=== PATIENT | female | born 1990 ===

== ENCOUNTER 2018-03-03 11:21 | Emergency (ER) | payer MEDICAID ==
[2018-03-03 11:34] VITALS: BP 111/71; PULSE 65; RESP 16; TEMP 98.1
[2018-03-03 11:35] VITALS: BMI 27.4
[2018-03-03 11:39] VITALS: O2SAT 98
[2018-03-03] MEDS ORDERED: Sodium Chloride 0.9% 1,000 ML IV STA (11:50)
--- NOTE | 2018-03-03 11:56 | ED PDOC ---
HPI: General Adult Time Seen by Provider: 03/03/18 11:28 Chief Complaint (Nursing): Upper Extremity Problem/Injury Chief Complaint (Provider): Finger pain and dizziness History Per: Patient History/Exam Limitations: no limitations Onset/Duration Of Symptoms: Days () Current Symptoms Are (Timing): Still Present Additional Complaint(s): Pt. with dizziness like light-headed that happened x2 randomly and lasted 2 minutes. One time on and one time Monday. She suddenly gets the episode with palpitations. Feels like her anxiety attacks that she has had in the past. Symptoms go away on her own. No numbness, tingles. No headaches, chest pain, dyspnea, abd pain, nausea, vomit, leg pain, or hormones/drugs/etoh use. Took ativan on Mon as she had an anxiety attack. Pt. has no dizziness or palpitations currently. Pt. also with R hand ringer pain after helping her boss moving something. Pain on going for 1 month. Pt. did not take anything for it. Tried a splint with some relief. No back pain. Past Medical History Reviewed: Nursing Documentation, Vital Signs Vital Signs: Last Vital Signs Temp 98.1 F 03/03/18 11:33 Pulse 65 03/03/18 11:33 Resp 16 03/03/18 11:33 BP 111/71 03/03/18 11:33 Pulse Ox 98 03/03/18 11:59 - Medical History PMH: Anxiety, Depression - Surgical History Surgical History: No Surg Hx - Family History Family History: States: Unknown Family Hx - Living Arrangements Living Arrangements: With Family - Social History Alcohol: None - Allergies Allergies/Adverse Reactions: Allergies Allergy/AdvReac Type Severity Reaction Status Date / Time No Known Allergies Allergy Verified 03/03/18 11:37 Review of Systems ROS Statement: Except As Marked, All Systems Reviewed And Found Negative Constitutional: Positive for: Weakness (after the episode (not currently)) Cardiovascular: Positive for: Palpitations, Light Headedness Musculoskeletal: Positive for: Hand Pain Neurological: Positive for: Weakness, Dizziness Physical Exam - Reviewed Nursing Documentation Reviewed: Yes Vital Signs Reviewed: Yes - Physical Exam Appears: Positive for: Non-toxic, No Acute Distress Head Exam: Positive for: ATRAUMATIC, NORMAL INSPECTION, NORMOCEPHALIC Skin: Positive for: Normal Color, Warm, DRY Eye Exam: Positive for: EOMI, Normal appearance, PERRL ENT: Positive for: Normal ENT Inspection Neck: Positive for: Normal, Painless ROM, Supple Cardiovascular/Chest: Positive for: Regular Rate, Rhythm Respiratory: Positive for: CNT, Normal Breath Sounds Gastrointestinal/Abdominal: Positive for: Normal Exam, Soft. Negative for: Tenderness Back: Positive for: Normal Inspection. 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 Negative for: Motor/Sensory Deficits, Aphasia, Facial Droop - Laboratory Results Result Diagrams: 03/03/18 12:13 03/03/18 12:13 Interpretation Of Abn Labs: no acute - ECG ECG: Positive for: Interpreted By Me, Viewed By Me ECG Rhythm: Positive for: Normal QRS, Normal ST Segment, Sinus Rhythm O2 Sat by Pulse Oximetry: 98 Pulse Ox Interpretation: Normal - Radiology X-Ray: Interpreted by Me, Viewed By Me, Read By Radiologist (Dr. Yeung) X-Ray Interpretation: No Acute Disease - Progress ED Course And Treament: 1255: Stable. AAOx3. Pain free. Tolerated PO. Laughing with friends in room. No dizziness. Similar to anxiety in the past. Fu with pcp. Disposition - Clinical Impression Clinical Impression: Dizziness, Finger injury - Patient ED Disposition Is Patient to be Admitted: No Counseled Patient/Family Regarding: Studies Performed, Diagnosis, Need For Followup - Disposition Referrals: [facility] [Outside] - 03/05/18 Disposition: Routine/Home Disposition Time: 12:57 Condition: STABLE Additional Instructions: Return if not better in 3 days. Instructions: Dizziness, Nonvertigo, (DC), Common Finger Injuries Forms: [facility] ED School/Work Excuse
[2018-03-03 12:19] LABS: BASO % 0.3 % (0.0-2.0); EOS # 0.2 K/uL (0.0-0.7); EOS % 2.3 % (0.0-4.0); HEMOGLOBIN 13.5 g/dL (12.0-16.0); LYMPH # 2.4 K/uL (1.0-4.3); LYMPH % 32.2 % (20.0-40.0); MEAN CELL VOLUME 97.9 fl (81.0-99.0); MEAN CORPUSCULAR HEMOGLOBIN 33.4 pg (27.0-31.0); MEAN CORPUSCULAR HGB CONC 34.1 g/dL (33.0-37.0); MEAN PLATELET VOLUME 7.6 fl (7.2-11.7); MONO # 0.7 K/uL (0.0-0.8); MONO % 8.8 % (0.0-10.0); NEUT # 4.2 K/uL (1.8-7.0); NEUT % 56.4 % (50.0-75.0); RBC 4.05 Mil/uL (3.80-5.20); RED CELL DISTRIBUTION WIDTH 12.4 % (11.5-14.5); WHITE BLOOD COUNT 7.4 K/uL (4.8-10.8)
[2018-03-03 12:29] LABS: BLOOD UREA NITROGEN 19 mg/dl (7-17); CALCIUM 9.3 mg/dL (8.4-10.2); GFR AFRICAN-AMERICAN > 60; GFR NON-AFRICAN AMERICAN > 60
--- NOTE | 2018-03-03 12:57 | RAD ---
PROCEDURE: Right Hand Radiographs. HISTORY: pain finger 4th COMPARISON: None. FINDINGS: BONES: No acute fracture. JOINTS: Unremarkable. SOFT TISSUES: Normal. OTHER FINDINGS: None. IMPRESSION: No demonstrated fracture or dislocation.
--- NOTE | 2018-03-03 17:42 | CARD ---
APPROVED REPORT EKG Measurement Heart [id number] <Conclusion> Normal sinus rhythm Normal ECG
== END 2018-03-03 14:04 | disposition home or self-care (01) ==
LOC: H.ER 11:21
DX: R42 Dizziness and giddiness (principal); S69.91XA Unspecified injury of right wrist, hand and finger(s), initial encounter; Y92.89 Other specified places as the place of occurrence of the external cause

== ENCOUNTER 2018-07-28 22:09 | Emergency (ER) | payer MEDICAID ==
[2018-07-28 22:09] VITALS: BMI 27.4
[2018-07-28 22:16] VITALS: BP 103/66; PULSE 63; RESP 18; TEMP 97.9; O2SAT 100
[2018-07-28] MEDS ORDERED: Amoxicillin-Clav 875-125 mg Tab PO STA (22:26)
[2018-07-28] MEDS ORDERED: Tdap Vaccine 0.5 ml Vial (10-64 yrs) IM ONE ×2 (22:26→22:45)
--- NOTE | 2018-07-28 22:37 | ED PDOC ---
HPI: Skin/Bite Injury Chief Complaint (Provider): Cat Bite History Per: Patient History/Exam Limitations: no limitations Onset/Duration Of Symptoms: Hrs (since 5pm) Current Symptoms Are (Timing): Still Present Quality Of Symptoms: Painful Pain Scale Rating Of: 6 Additional Complaint(s): Patient is a 28 year old female who presents for evaluation of a cat bite to the right forearm. Patient reports that her girlfriend's cat is staying with her temporarily and that due to the change in environment, the cat has been on edge and bit her this afternoon around 5pm. Cat is up to date with vaccines and has been domesticated it's entire life. Patient reports localized pain to the bite site. 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 No other complaints. Patient is right hand dominant. PMD: [place] Tetanus: not UTD LMP: 07/12/18 <Yamilka Wolfe - Last Filed: 07/28/18 23:10> <Jordan Rubio - Last Filed: 07/30/18 06:41> Time Seen by Provider: 07/28/18 22:15 Chief Complaint (Nursing): Bite Past Medical History Reviewed: Historical Data, Nursing Documentation, Vital Signs Vital Signs: Last Vital Signs Temp 97.9 F 07/28/18 22:13 Pulse 63 07/28/18 22:13 Resp 18 07/28/18 22:13 BP 103/66 07/28/18 22:13 Pulse Ox 100 07/28/18 22:13 - Medical History PMH: Anxiety, Depression - Surgical History Other surgeries: gastic sleeve - Family History Family History: States: Unknown Family Hx - Immunization History Hx Tetanus Toxoid Vaccination: No (not up to date) <Yamilka Wolfe - Last Filed: 07/28/18 23:10> Vital Signs: Last Vital Signs Temp 97.9 F 07/28/18 22:13 Pulse 63 07/28/18 22:13 Resp 18 07/28/18 22:13 BP 103/66 07/28/18 22:13 Pulse Ox 100 07/28/18 23:10 <Jordan Rubio - Last Filed: 07/30/18 06:41> - Home Medications Home Medications: Ambulatory Orders Medication Instructions Recorded Amoxicillin/Clavulanate [Augmentin 1 tab PO BID #14 tab 07/28/18 875 MG-125 MG] RX: Bacitracin Ointment 1 applic TOP BID #1 tube 07/28/18 [Bacitracin] RX: Ibuprofen [Motrin Tab] 600 mg PO Q6 PRN #20 tab 07/28/18 - Allergies Allergies/Adverse Reactions: Allergies Allergy/AdvReac Type Severity Reaction Status Date / Time naproxen Allergy RASH Verified 07/28/18 22:13 Review of Systems ROS Statement: Except As Marked, All Systems Reviewed And Found Negative Skin: Positive for: Other (bite to right forearm) <Yamilka Wolfe - Last Filed: 07/28/18 23:10> Physical Exam - Reviewed Nursing Documentation Reviewed: Yes Vital Signs Reviewed: Yes - Physical Exam Appears: Positive for: Well, Non-toxic, No Acute Distress Head Exam: Positive for: ATRAUMATIC, NORMOCEPHALIC Skin: Positive for: Normal Color, Warm, Dry Eye Exam: Positive for: Normal appearance ENT: Positive for: Other (Airway patent, (-) stridor. Mucus membranes moist. ) Neck: Positive for: Painless ROM, Supple Cardiovascular/Chest: Positive for: Regular Rate, Rhythm Respiratory: Positive for: Normal Breath Sounds. Negative for: Respiratory Distress Extremity: Positive for: Normal ROM (of right upper extremity at all joints), Tenderness (localized to bite site), Capillary Refill (intact), Swelling (mild edema to bite sites), Other (multiple puncture wound and superficial abrasions to right forearm and distal upper arm. (-) surrounding erythema or cellulitis (- ) pus drainage. Sensation intact throughout, (-) distal NV deficit.). Negative for: Deformity Neurologic/Psych: Positive for: Alert, Oriented (x3), Gait (steady in ED). Negative for: Aphasia, Facial Droop <Brii Wolfebefrancia Marina - Last Filed: 07/28/18 23:10> - Laboratory Results Urine POC: Negative - ECG O2 Sat by Pulse Oximetry: 100 (RA) Pulse Ox Interpretation: Normal <Yamilka Wolfe - Last Filed: 07/28/18 23:10> Medical Decision Making Medical Decision Makin Initial Impression: Cat Bite to Right Arm Plan: -Augmentin PO -Tetanus IM -Ibuprofen PO -Re-evaluation. -Wounds irrigated with saline. Bacitracin bandages applied. Upreg: negative 2310 On re-evaluation, patient reports improvement of symptoms. On exam, patient remains AAOx3, in no acute distress. Lungs clear to auscultation, cardiac RRR, repeat neuro exam shows no focal findings. Vitals stable. Educated on wound care. Lab/Diagnostic results d/w the patient in great detail. Diagnosis of cat bite to arm d/w the patient. Return precautions given. Based on history, exam and diagnostic results, plan will be for outpatient follow up with PMD in 2 days for wound check. Patient instructed to follow-up with pmd / referral provided / the clinic in 1- 2 days without fail. Advised to take medication as prescribed. Return to the emergency room at any time for any new or worsening symptoms. Patient states she fully agrees with and understands discharge instructions. States that she agrees with the plan and disposition. Verbalized and repeated discharge instructions and plan. I have given the patient opportunity to ask any additional questions. <Yamilka Wolfe - Last Filed: 07/28/18 23:10> Disposition - Patient ED Disposition Is Patient to be Admitted: No Counseled Patient/Family Regarding: Studies Performed, Diagnosis, Need For Followup, Rx Given - Disposition Disposition: Routine/Home Disposition Time: 23:10 - POA Present On Arrival: None <Yamilka Wolfe - Last Filed: 07/28/18 23:10> <Jordan Rubio - Last Filed: 07/30/18 06:41> - Clinical Impression Clinical Impression: Cat bite, Arm pain, right, Visit for wound check - Disposition Referrals: Priscila Nava [employer]ODUCE TE[employer] MEMBER [Advanced Practice Nurse] - Condition: STABLE Additional Instructions: The emergency medical care you received today was directed at your acute symptoms. If you were prescribed any medication, please fill it and take as directed. It may take several days for your symptoms to resolve. Return to the Emergency Department if your symptoms worsen, do not improve, or if you have any other problems. Please contact your doctor in 2 days for re-evaluation and follow up / or call one of the physicians/clinics you have been referred to that are listed on the Patient Visit Information form that is included in your discharge packet. Bring any paperwork you were given at discharge with you along with any medications you are taking to your follow up visit. Our treatment cannot replace ongoing medical care by a primary care provider (PCP) outside of the emergency department. 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 <Jordan Rubio - Last Filed: 07/30/18 06:41>
[2018-07-28] MEDS ORDERED: Bacitracin 500 Units/gm Oint Foilpak UD TOP STA (22:43)
[2018-07-28] MEDS ORDERED: Amoxicillin-Clav 875-125 mg Tab PO ONE (22:45)
== END 2018-07-28 23:25 | disposition home or self-care (01) ==
LOC: H.ER 22:09
DX: S51.851A Open bite of right forearm, initial encounter (principal); W55.01XA Bitten by cat, initial encounter; Z23 Encounter for immunization; Z86.59 Personal history of other mental and behavioral disorders

== ENCOUNTER 2018-09-11 14:31 | Emergency (ER) | payer MEDICAID ==
[2018-09-11 14:31] VITALS: BMI 27.4
[2018-09-11 15:10] VITALS: BP 97/63; PULSE 79; RESP 18; TEMP 97.8; O2SAT 98
--- NOTE | 2018-09-11 16:07 | ED PDOC ---
HPI: Skin/Bite Injury Time Seen by Provider: 09/11/18 15:26 Chief Complaint (Nursing): Abnormal Skin Integrity Chief Complaint (Provider): Laceration, left middle History Per: Patient History/Exam Limitations: no limitations Onset/Duration Of Symptoms: Mins Current Symptoms Are (Timing): Still Present Quality Of Symptoms: Painful Severity: Moderate Pain Scale Rating Of: 7 Additional Complaint(s): 28 yo female with up to date tetanus presents for evaluation of laceration to the left distal middle finger. Pain 7/10. Pt reports irrigating finger under water at home. 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 Past Medical History Reviewed: Historical Data, Nursing Documentation, Vital Signs Vital Signs: Last Vital Signs Temp 97.8 F 09/11/18 15:07 Pulse 79 09/11/18 15:07 Resp 18 09/11/18 15:07 BP 97/63 L 09/11/18 15:07 Pulse Ox 98 09/11/18 15:07 - Medical History PMH: Anxiety, Depression - Family History Family History: States: Unknown Family Hx - Living Arrangements Living Arrangements: With Family - Social History Current smoker - smoking cessation education provided: No - Immunization History Hx Tetanus Toxoid Vaccination: No (not up to date) - Home Medications Home Medications: Ambulatory Orders Medication Instructions Recorded Amoxicillin/Clavulanate [Augmentin 1 tab PO BID #14 tab 07/28/18 875 MG-125 MG] Bacitracin Ointment [Bacitracin] 1 applic TOP BID #1 tube 07/28/18 Ibuprofen [Motrin Tab] 600 mg PO Q6 PRN #20 tab 07/28/18 Cephalexin [Keflex] 500 mg PO BID #14 capsule 09/11/18 - Allergies Allergies/Adverse Reactions: Allergies Allergy/AdvReac Type Severity Reaction Status Date / Time naproxen Allergy RASH Verified 07/28/18 22:13 Review of Systems ROS Statement: Except As Marked, All Systems Reviewed And Found Negative Constitutional: Negative for: Fever, Chills Skin: Positive for: Other Physical Exam - Reviewed Nursing Documentation Reviewed: Yes Vital Signs Reviewed: Yes - Physical Exam Appears: Positive for: Well, Non-toxic, No Acute Distress Head Exam: Positive for: ATRAUMATIC, NORMAL INSPECTION, NORMOCEPHALIC Skin: Positive for: Warm. Negative for: Normal Color (1 cm curvilinear laceration on distal 3rd left finger, wound remains closed with ROM.) Eye Exam: Positive for: Normal appearance ENT: Positive for: Normal ENT Inspection Neck: Positive for: Normal Cardiovascular/Chest: Negative for: Bradycardia, Tachycardia Respiratory: Negative for: Accessory Muscle Use, Respiratory Distress Back: Positive for: Normal Inspection Extremity: Positive for: Normal ROM, Capillary Refill. Negative for: Deformity, Swelling Neurologic/Psych: Positive for: Alert, Oriented - ECG O2 Sat by Pulse Oximetry: 98 Pulse Ox Interpretation: Normal Medical Decision Making Medical Decision Making: Wound irrigated, antibiotic ointment and dressing applied. Disposition - Clinical Impression Clinical Impression: Finger laceration - Patient ED Disposition Is Patient to be Admitted: No - Disposition Disposition: Routine/Home Disposition Time: 16:09 Condition: GOOD Prescriptions: Cephalexin [Keflex] 500 mg PO BID #14 capsule Instructions: Laceration Repair Forms: [facility] (Gambian), [facility] ED School/Work Excuse
== END 2018-09-11 16:14 | disposition home or self-care (01) ==
LOC: H.ER 14:31
DX: S61.213A Laceration without foreign body of left middle finger without damage to nail, initial encounter (principal); W26.0XXA Contact with knife, initial encounter; Y92.89 Other specified places as the place of occurrence of the external cause

== ENCOUNTER 2018-11-26 12:01 | Emergency (ER) | payer MEDICAID ==
[2018-11-26 12:19] VITALS: BMI 29.8
[2018-11-26 12:21] VITALS: O2SAT 100
[2018-11-26] MEDS ORDERED: Oxycodone/Acetaminophen 5/325 mg Tab PO STA (12:33)
--- NOTE | 2018-11-26 13:10 | ED PDOC ---
HPI: Back Time Seen by Provider: 11/26/18 12:25 Chief Complaint (Nursing): Back Pain Chief Complaint (Provider): Back Pain History Per: Patient History/Exam Limitations: no limitations Onset/Duration Of Symptoms: Hrs (today morning) Current Symptoms Are (Timing): Still Present Additional Complaint(s): 28 year old female with a past medical history of depression and anxiety, who presents to the emergency department complaining of left sided lower back pain that radiates to left hip since the morning. She denies any heavy lifting, weakness, paraesthesia, weakness, fever, nausea, or vomiting. PMD: Carlos Benson Past Medical History Reviewed: Historical Data, Nursing Documentation Vital Signs: Last Vital Signs Temp 97.7 F 11/26/18 12:19 Pulse 68 11/26/18 12:19 Resp 17 11/26/18 12:19 BP 114/66 11/26/18 12:19 Pulse Ox 100 11/26/18 12:19 - Medical History PMH: Anxiety, Depression - Surgical History Surgical History: No Surg Hx - Family History Family History: States: Unknown Family Hx - Immunization History Hx Tetanus Toxoid Vaccination: No (not up to date) - Home Medications Home Medications: Ambulatory Orders Medication Instructions Recorded Amoxicillin/Clavulanate [Augmentin 1 tab PO BID #14 tab 07/28/18 875 MG-125 MG] Bacitracin Ointment [Bacitracin] 1 applic TOP BID #1 tube 07/28/18 Ibuprofen [Motrin Tab] 600 mg PO Q6 PRN #20 tab 07/28/18 Cephalexin [Keflex] 500 mg PO BID #14 capsule 09/11/18 Cyclobenzaprine [Cyclobenzaprine 10 mg PO TID #10 tab 11/26/18 HCl] Methylprednisolone [Medrol Dose 4 mg PO DAILY #21 tab 11/26/18 Pack (21 tabs)] - Allergies Allergies/Adverse Reactions: Allergies Allergy/AdvReac Type Severity Reaction Status Date / Time naproxen Allergy RASH Verified 11/26/18 12:19 Review of Systems ROS Statement: Except As Marked, All Systems Reviewed And Found Negative Gastrointestinal: Negative for: Nausea, Vomiting Genitourinary Female: Negative for: Dysuria, Frequency, Incontinence, Hematuria Musculoskeletal: Positive for: Back Pain (left sided ), Other (left hip pain) Neurological: Negative for: Weakness, Other (paresthesia) Physical Exam - Reviewed Nursing Documentation Reviewed: Yes Vital Signs Reviewed: Yes - Physical Exam Appears: Positive for: Non-toxic, No Acute Distress Head Exam: Positive for: ATRAUMATIC, NORMOCEPHALIC Skin: Positive for: Normal Color, Warm, Dry Eye Exam: Positive for: Normal appearance, EOMI, PERRL ENT: Positive for: Normal ENT Inspection Neck: Positive for: Normal, Painless ROM, Supple Cardiovascular/Chest: Positive for: Regular Rate, Rhythm. Negative for: Murmur Respiratory: Positive for: Normal Breath Sounds. Negative for: Respiratory Distress Gastrointestinal/Abdominal: Positive for: Normal Exam, Soft. Negative for: Tenderness Back: Positive for: Other (left paralumbar tenderness and spasm). Negative for: Vertebral Tenderness Extremity: Positive for: Other (pain on left sided straight leg raise 30 degrees) Neurologic/Psych: Positive for: Alert, Oriented. Negative for: Motor/Sensory Deficits - ECG O2 Sat by Pulse Oximetry: 100 (RA) Pulse Ox Interpretation: Normal - Progress Re-evaluation Time: 14:58 Condition: Improved (Back pain improved able to ambulate) Medical Decision Making Medical Decision Makin Impression: Most likely musculoskeletal pain Plan: will obtain urine to rule out infection vs. kidney stone. Will treat with Percocet because patient is allergic to incense --ED urine dipstick --Oxycodone 1 tab PO [Percocet 5/325 mg tab] Scribe Attestation: Documented by Mitch Ho, acting as a scribe for Prem Colón MD. Provider Scribe Attestation: All medical record entries made by the Scribe were at my direction and personally dictated by me. I have reviewed the chart and agree that the record accurately reflects my personal performance of the history, physical exam, medical decision making, and the department course for this patient. I have also personally directed, reviewed, and agree with the discharge instructions and disposition. Disposition - Clinical Impression Clinical Impression: Low back pain - Patient ED Disposition Is Patient to be Admitted: No Counseled Patient/Family Regarding: Diagnosis, Need For Followup, Rx Given - Disposition Referrals: Mahesh Lowe III, MD [Staff Provider] - Disposition: Routine/Home Disposition Time: 14:58 Condition: FAIR Prescriptions: Cyclobenzaprine [Cyclobenzaprine HCl] 10 mg PO TID #10 tab Methylprednisolone [Medrol Dose Pack (21 tabs)] 4 mg PO DAILY #21 tab Instructions: Low Back Pain (DC) Forms: [facility] (Jamaican)
[2018-11-26] MEDS ORDERED: Oxycodone/Acetaminophen 5/325 mg Tab ONE (13:28)
[2018-11-26 15:46] VITALS: BP 105/61; PULSE 82; RESP 18; TEMP 98.6
== END 2018-11-26 15:52 | disposition home or self-care (01) ==
LOC: H.ER 12:01
DX: M54.5 Low back pain (principal); Z86.59 Personal history of other mental and behavioral disorders

== ENCOUNTER 2019-02-27 13:51 | Emergency (ER) | payer MEDICAID ==
[2019-02-27 13:51] VITALS: BMI 29.8
[2019-02-27 14:27] VITALS: PULSE 70; O2SAT 100
--- NOTE | 2019-02-27 14:58 | ED PDOC ---
HPI: Back Time Seen by Provider: 02/27/19 14:31 Chief Complaint (Nursing): Back Pain Chief Complaint (Provider): Back Pain History Per: Patient History/Exam Limitations: no limitations Quality Of Discomfort: "Pain" Previous Symptoms: Chronic Pain Additional Complaint(s): 28 year old female presents to the ED for evaluation of lower back pain. Patient reports on Monday, she bent over to flower picker an object and "threw her back out". Since then, she has had difficulty walking, prompting a visit her PMD on Monday who provided an Rx for Flexeril 5mg which she last took at 11:30AM. She has an outpatient CT of the lumbar spine scheduled later this week but she could not wait until the appointment due to worsening pain. Also reports she has a history of chronic low back pain in the past but the pain has never been this severe. Otherwise, patient denies trauma, falls, numbness, weakness, saddle anesthesia, abdominal pain, nausea, vomiting, diarrhea, urinary symptoms, chest pain, shortness of breath or incontinence. No other complaints or associated symptoms. LMP: last week PMD: Elijah RAMSAY Past Medical History Reviewed: Historical Data, Nursing Documentation, Vital Signs Vital Signs: Last Vital Signs Temp 98.3 F 02/27/19 14:25 Pulse 70 02/27/19 14:25 Resp 17 02/27/19 14:25 BP 112/64 02/27/19 14:25 Pulse Ox 100 02/27/19 14:25 - Medical History PMH: Anxiety, Back Problems (chronic ), Depression - Surgical History Other surgeries: gastric sleeve - Family History Family History: States: Unknown Family Hx - Home Medications Home Medications: Ambulatory Orders Medication Instructions Recorded Amoxicillin/Clavulanate [Augmentin 1 tab PO BID #14 tab 07/28/18 875 MG-125 MG] Bacitracin Ointment [Bacitracin] 1 applic TOP BID #1 tube 07/28/18 Ibuprofen [Motrin Tab] 600 mg PO Q6 PRN #20 tab 07/28/18 Cephalexin [Keflex] 500 mg PO BID #14 capsule 09/11/18 Cyclobenzaprine [Cyclobenzaprine 10 mg PO TID #10 tab 11/26/18 HCl] Methylprednisolone [Medrol Dose 4 mg PO DAILY #21 tab 11/26/18 Pack (21 tabs)] Acetaminophen [Acetaminophen 8 650 mg PO Q8 PRN #21 tablet.er 02/27/19 Hour] Ibuprofen [Motrin Tab] 800 mg PO Q8 PRN #21 tab 02/27/19 - Allergies Allergies/Adverse Reactions: Allergies Allergy/AdvReac Type Severity Reaction Status Date / Time naproxen Allergy RASH Verified 02/27/19 14:27 Review of Systems ROS Statement: Except As Marked, All Systems Reviewed And Found Negative Constitutional: Negative for: Fever Cardiovascular: Negative for: Chest Pain Respiratory: Negative for: Shortness of Breath Gastrointestinal: Negative for: Nausea, Vomiting, Abdominal Pain, Diarrhea Genitourinary Female: Negative for: Dysuria, Frequency, Incontinence Musculoskeletal: Positive for: Back Pain Neurological: Negative for: Weakness, Numbness, Other (saddle anesthesia ) Physical Exam - Reviewed Nursing Documentation Reviewed: Yes Vital Signs Reviewed: Yes - Physical Exam Comments: GENERAL APPEARANCE: Patient is awake, alert, oriented x 3, in mild painful distress. Uncomfortable appearing. SKIN: Warm, dry; (-) cyanosis. EYES: (-) conjunctival injection ENMT: Mucous membranes moist. Airway patent, (-) stridor. NECK: Supple, FROM CHEST AND RESPIRATORY: (-) rales, (-) rhonchi, (-) wheezes; breath sounds equal bilaterally. Respirations even and nonlabored. HEART AND CARDIOVASCULAR: (-) irregularity ABDOMEN AND GI: Soft; (-) tenderness (-) CVA tenderness (-) distention BACK: (+) midline lumbar tenderness and left paralumbar tenderness (-) deformity EXTREMITIES: (-) deformity. Distal pulses good bilaterally. NEURO AND PSYCH: Mental status as above. Intact sensation bilaterally; normal strength in extension of the knees, plantar and dorsiflexion of the toes. Gait: assisted with crutch. Speech: clear. (-) facial asymmetry - Laboratory Results Urine POC: Negative - ECG O2 Sat by Pulse Oximetry: 100 (RA) Pulse Ox Interpretation: Normal Medical Decision Making Medical Decision Making: Time: 1440 Impression: 28yo female with acute on chronic back pain Plan: --Lumbar spine w/o contrast CT --ED urine --Ultram 50mg PO (not driving home) --Valium 5mg PO --U/A --Re-evaluation 1620 PROCEDURE: CT Lumbar Spine without contrast HISTORY: sent by PMD COMPARISON: None available. TECHNIQUE: Axial computed tomography images were obtained of the lumbar spine without the use of intravenous contrast. Coronal and sagittal reformatted images were created and reviewed. Radiation dose: Total exam DLP = 923.91 mGy-cm. This CT exam was performed using one or more of the following dose reduction techniques: Automated exposure control, adjustment of the mA and/or kV according to patient size, and/or use of iterative reconstruction technique. FINDINGS: VERTEBRAE: There is normal alignment of the lumbar vertebral bodies. There is normal lumbar lordosis. There is no acute fracture, spondylolysis or spondylolisthesis. A small area of sclerosis in the left lower sacrum is statistically most compatible with a bone island bone mineralization is normal. DISCS/SPINAL CANAL/NEURAL FORAMINA: Evaluation of the discs and spinal canal is limited on noncontrast CT examination. Allowing for this, the spinal canal is grossly patent. L1-2: No large disc herniation, neural foraminal or spinal canal stenosis. L2-3: No large disc herniation, neural foraminal or spinal canal stenosis. L3-4: Mild posterior disc bulge without central spinal canal stenosis. No neural foraminal narrowing. L4-5: Broad-based central disc protrusion indents the ventral thecal sac with mild spinal canal stenosis. Mild bilateral facet arthropathy contribute to mild neural foraminal narrowing. L5-S1: Posterior disc bulge without central spinal canal stenosis. No neural foraminal narrowing. PARASPINAL SOFT TISSUES: The paraspinous soft tissues are normal. Imaged portion of the retroperitoneum is within normal limits. OTHER FINDINGS: None. IMPRESSION: 1. No acute fracture, spondylolysis or spondylolisthesis. 2. Mild multilevel degenerative disc disease in the lower lumbar spine, worse at L4-5 with a broad-based central disc protrusion and mild spinal canal stenosis. Mild bilateral facet arthropathy contribute to mild neural foraminal narrowing. U/A unremarkable. On re-evaluation, patient reports improvement of symptoms. On exam, patient remains AAOx3, in no acute distress. Vitals stable. Patient reports she has a follow up appt with PMD tomorrow morning. Lab/Diagnostic results d/w the patient in great detail. Diagnosis of acute back pain, spinal stenosis, degenerative disc disease d/w the patient. Based on history, exam and diagnostic results, plan will be for outpatient follow up with PMD/ortho. Patient instructed to follow-up with pmd / referral provided / the clinic in 1- 2 days without fail. Advised to take medication as prescribed. Return to the emergency room at any time for any new or worsening symptoms. Patient states she fully agrees with and understands discharge instructions. States that she agrees with the plan and disposition. Verbalized and repeated discharge instructions and plan. I have given the patient opportunity to ask any additional questions. -- Scribe Attestation: Documented by Otilio Art, acting as a scribe for Yamilka Wolfe PA-C. Provider Scribe Attestation: All medical record entries made by the Scribe were at my direction and personally dictated by me. I have reviewed the chart and agree that the record accurately reflects my personal performance of the history, physical exam, medical decision making, and the department course for this patient. I have also personally directed, reviewed, and agree with the discharge instructions and disposition. Disposition - Clinical Impression Clinical Impression: Acute back pain, Spinal stenosis, Degenerative disc disease - Patient ED Disposition Is Patient to be Admitted: No Counseled Patient/Family Regarding: Studies Performed, Diagnosis, Need For Followup, Rx Given - Disposition Referrals: Priscila Nava APN [Advanced Practice Nurse] - Mahesh Lowe III, MD [Staff Provider] - [facility] [Outside] Disposition: Routine/Home Disposition Time: 16:40 Condition: STABLE Additional Instructions: CONTINUE USE OF FLEXERIL AT HOME IN CONJUNCTION WITH TODAY'S PRESCRIBED MEDICATIONS. The emergency medical care you received today was directed at your acute symptoms. If you were prescribed any medication, please fill it and take as directed. It may take several days for your symptoms to resolve. Return to the Emergency Department if your symptoms worsen, do not improve, or if you have any other problems. Please contact your doctor in 2 days for re-evaluation and follow up / or call one of the physicians/clinics you have been referred to that are listed on the Patient Visit Information form that is included in your discharge packet. Bring any paperwork you were given at discharge with you along with any medications you are taking to your follow up visit. Our treatment cannot replace ongoing medical care by a primary care provider (PCP) outside of the emergency department. Prescriptions: Acetaminophen [Acetaminophen 8 Hour] 650 mg PO Q8 PRN #21 tablet.er PRN Reason: Pain, Moderate (4-7) Ibuprofen [Motrin Tab] 800 mg PO Q8 PRN #21 tab PRN Reason: Pain, Moderate (4-7) Instructions: Spinal Stenosis, Low Back Pain in Adults, Degenerative Disc Disease, Spinal Stenosis Stretching Exercises Forms: [employer] (Ukrainian), [employer] ED School/Work Excuse Print Language: PANAMANIAN - POA Present On Arrival: None Results - Diagnostic Imaging Results Radiology Results Lumbar Spine CT 02/27/19 14:38 IMPRESSION: 1. No acute fracture, spondylolysis or spondylolisthesis. 2. Mild multilevel degenerative disc disease in the lower lumbar spine, worse at L4-5 with a broad-based central disc protrusion and mild spinal canal stenosis. Mild bilateral facet arthropathy contribute to mild neural foraminal narrowing. - Lab Results Lab Results: 02/27/19 15:45 Urine Color Yellow Urine Clarity Slighty-cloudy Urine pH 6.0 Ur Specific [place] 1.026 Urine Protein Negative Urine Glucose (UA) Neg Urine Ketones Negative Urine Blood Negative Urine Nitrate Negative Urine Bilirubin Negative Urine Urobilinogen 0.2-1.0 Ur Leukocyte Esterase Neg Urine RBC (Auto) 2 Urine Microscopic WBC < 1 Ur Squamous Epith Cells 2 Urine Bacteria Rare
[2019-02-27 16:05] LABS: SQUAMOUS EPITHIAL 2 /hpf (0-5); URINE BACTERIA RARE (<OCC); URINE BILIRUBIN NEGATIVE (NEGATIVE); URINE BLOOD NEGATIVE (NEGATIVE); URINE CLARITY SLIGHTY-CLOUDY (Clear); URINE COLOR YELLOW (YELLOW); URINE GLUCOSE (UA) NEG (NEGATIVE); URINE LEUKOCYTE ESTERASE NEG Leu/uL (Negative); URINE PROTEIN NEGATIVE (NEGATIVE); URINE UROBILINOGEN 0.2-1.0 mg/dL (0.2-1.0)
--- NOTE | 2019-02-27 16:23 | CT ---
Date of service: 02/27/2019 PROCEDURE: CT Lumbar Spine without contrast HISTORY: sent by PMD COMPARISON: None available. TECHNIQUE: Axial computed tomography images were obtained of the lumbar spine without the use of intravenous contrast. Coronal and sagittal reformatted images were created and reviewed. Radiation dose: Total exam DLP = 923.91 mGy-cm. This CT exam was performed using one or more of the following dose reduction techniques: Automated exposure control, adjustment of the mA and/or kV according to patient size, and/or use of iterative reconstruction technique. FINDINGS: VERTEBRAE: There is normal alignment of the lumbar vertebral bodies. There is normal lumbar lordosis. There is no acute fracture, spondylolysis or spondylolisthesis. A small area of sclerosis in the left lower sacrum is statistically most compatible with a bone island bone mineralization is normal. DISCS/SPINAL CANAL/NEURAL FORAMINA: Evaluation of the discs and spinal canal is limited on noncontrast CT examination. Allowing for this, the spinal canal is grossly patent. L1-2: No large disc herniation, neural foraminal or spinal canal stenosis. L2-3: No large disc herniation, neural foraminal or spinal canal stenosis. L3-4: Mild posterior disc bulge without central spinal canal stenosis. No neural foraminal narrowing. L4-5: Broad-based central disc protrusion indents the ventral thecal sac with mild spinal canal stenosis. Mild bilateral facet arthropathy contribute to mild neural foraminal narrowing. L5-S1: Posterior disc bulge without central spinal canal stenosis. No neural foraminal narrowing. PARASPINAL SOFT TISSUES: The paraspinous soft tissues are normal. Imaged portion of the retroperitoneum is within normal limits. OTHER FINDINGS: None. IMPRESSION: 1. No acute fracture, spondylolysis or spondylolisthesis. 2. Mild multilevel degenerative disc disease in the lower lumbar spine, worse at L4-5 with a broad-based central disc protrusion and mild spinal canal stenosis. Mild bilateral facet arthropathy contribute to mild neural foraminal narrowing.
[2019-02-27 18:40] VITALS: BP 114/78; RESP 16; TEMP 97.9
== END 2019-02-27 18:40 | disposition home or self-care (01) ==
LOC: H.ER 13:51
DX: M54.9 Dorsalgia, unspecified (principal); M48.061 Spinal stenosis, lumbar region without neurogenic claudication; M51.26 Other intervertebral disc displacement, lumbar region; G89.29 Other chronic pain